=== PATIENT | male | born 1985 | race Hispanic/Latino ===

== ENCOUNTER 2018-08-07 14:58 | Observation (INO) | payer SELFPAY ==
[~2018-08-07] VITALS: Ht 170.2 cm; Wt 110.0 kg
[2018-08-07] VITALS (8 sets, daily range): BP systolic 106–138; BP diastolic 56–86
[~2018-08-07 14:58] MED LIST: EXCEDRI1 OR; FLEXERIL OR; FLEXERIL PO; FLONASE NASAL50 MCG; NAPROSYN500 MG PO; NO HOME MEDS; NORCO1 TA1 PO; ULTRAM50 M1 PO
[2018-08-07 15:41] LABS: HEMATOCRIT 47.4 % (39.0-50.0); HEMOGLOBIN 15.5 g/dl (14.0-18.0); MEAN CELL VOLUME 84.9 fL CALC (80.0-100.0); MEAN CORPUSCULAR HGB 27.8 pG CALC (26.0-32.0); MEAN CORPUSCULAR HGB CONC 32.7 g/L CALC (32.0-36.0); NEUT# 14.3 thou/uL (1.82-7.42); RED BLOOD COUNT 5.58 mill/uL (4.70-6.10); RED CELL DISTRI WIDTH 13.5 % (11.5-15.5)
[2018-08-07 15:53] LABS: ALBUMIN 4.7 g/dL (3.2-5.0); ALKALINE PHOSPHATASE 124 u/l (38-126); ANION GAP 16 (6-22 (CALC)); BILIRUBIN, TOTAL 0.7 mg/dL (0.0-1.4); BUN 14 mg/dL (9-20); BUN/CREATININE RATIO 11 (12-20 (CALC)); CARBON DIOXIDE 27 mmol/l (22-30); CHLORIDE 103 mmol/l (95-108); CREATININE 1.2 mg/dL (0.7-1.3); GFR > 60 ML/MIN (>=60 (CALC)); GFR FOR AFR.AMER. > 60 ML/MIN (>=60 (CALC)); LIPASE 138 u/l (23-300); POTASSIUM 4.3 mmol/l (3.5-5.1); SGOT/AST 35 u/l (17-59); SODIUM 143 mmol/l (137-146); TOTAL PROTEIN 8.3 g/dL (6.3-8.2)
[2018-08-07 16:45] LABS: URINE BILIRUBIN - DIPSTICK NEGATIVE (NEGATIVE); URINE BLOOD DIPSTICK NEGATIVE (NEGATIVE); URINE COLOR YELLOW; URINE GLUCOSE - DIPSTICK NEGATIVE (NEGATIVE); URINE KETONE NEGATIVE (NEGATIVE); URINE LEUK ESTERASE NEGATIVE (NEGATIVE); URINE NITRITE - DIPSTICK NEGATIVE (Negative); URINE PROTEIN - DIPSTICK NEGATIVE (NEG-TRACE); URINE SPECIFIC GRAVITY >=1.030
[2018-08-08 04:06] VITALS: BP 95/58
[2018-08-08 07:46] VITALS: BP 114/69
[2018-08-08] MEDS ORDERED: MOTRIN800 MG PO (10:09)
[2018-08-08] MEDS ORDERED: PERCOCET 5/325M1 TAB PO (10:10)
== END 2018-08-08 10:38 | disposition home or self-care (01) | DRG 343 ==
LOC: ED 14:58 → ED-I 15:44 → ED 15:44 → ED-I 17:13 → ED 18:18 → MS2 18:19
PROVIDERS: Emergency Medicine; ADMIT Internal Medicine; ATTEND Internal Medicine
PROC: 0DTJ4ZZ Resection of Appendix, Percutaneous Endoscopic Approach (ICD-10-PCS; principal; 2018-08-07)
DX: K35.30 Acute appendicitis with localized peritonitis, without perforation or gangrene (principal)
CPT/HCPCS: J1650; J2710; Q9967

== ENCOUNTER 2018-08-25 17:10 | Emergency (ER) | payer SELFPAY ==
[~2018-08-25] VITALS: Ht 170.2 cm; Wt 114.0 kg
[~2018-08-25 17:10] MED LIST changes: +MOTRIN800 MG PO; +PERCOCET 5/325M1 TAB PO
[2018-08-25] MEDS ORDERED: AMOXICILLIN500 MG PO (17:34)
[2018-08-25 17:35] VITALS: BP 126/78
== END 2018-08-25 17:35 | disposition home or self-care (01) | DRG 863 ==
LOC: ED 17:10
DX: T81.41XA Infection following a procedure, superficial incisional surgical site, initial encounter (principal); Y83.6 Removal of other organ (partial) (total) as the cause of abnormal reaction of the patient, or of later complication, without mention of misadventure at the time of the procedure

== ENCOUNTER 2019-12-08 05:13 | Inpatient (IN) | payer SELFPAY ==
[~2019-12-08] VITALS: Ht 172.7 cm; Wt 111.2 kg
[2019-12-08] VITALS (13 sets, daily range): BP systolic 108–137; BP diastolic 65–88
[~2019-12-08 05:13] MED LIST changes: +AMOXICILLIN500 MG PO
--- NOTE | 2019-12-08 05:15 | NUR ---
PATIENT TO TREATMENT ROOM 10 FOR BEDSIDE TRIAGE, PATIENT STATES THAT HE HAS HAD A SORE THROAT X 2 DAYS AND FEELS THAT HE IS EXCESSIVELY THIRSTY. AWAKE AND ALERT, NO S/S OF DISTRESS, FAMILY AT BEDSIDE.
--- NOTE | 2019-12-08 05:52 | NUR ---
PATIENT RESTING QUIETLY, NO C/O PAIN, NO S/S OF DISTRESS, RESPIRATIONS EVEN AND UNLABORED, AWAITING DIAGNOSTIC RESULTS.
[2019-12-08 05:59] LABS: HEMATOCRIT 46.9 % (39.0-50.0); HEMOGLOBIN 16.1 g/dl (14.0-18.0); IMMATURE GRANULOCYTES 0.4 % (0.0-5.0); MEAN CELL VOLUME 81.3 fL CALC (80.0-100.0); MEAN CORPUSCULAR HGB 27.9 pG CALC (26.0-32.0); MEAN CORPUSCULAR HGB CONC 34.3 g/dL CAL (32.0-36.0); NEUT# 7.16 thou/uL (1.82-7.42); RED BLOOD COUNT 5.77 mill/uL (4.70-6.10); RED CELL DISTRI WIDTH 12.4 % (11.5-15.5)
[2019-12-08 05:59] LABS: URINE BILIRUBIN - DIPSTICK NEGATIVE (NEGATIVE); URINE BLOOD DIPSTICK NEGATIVE (NEGATIVE); URINE COLOR YELLOW; URINE GLUCOSE - DIPSTICK >=1000 mg/dL (NEGATIVE); URINE KETONE NEGATIVE (NEGATIVE); URINE LEUK ESTERASE NEGATIVE (NEGATIVE); URINE NITRITE - DIPSTICK NEGATIVE (Negative); URINE PH 5.5 (4.5-8.0); URINE PROTEIN - DIPSTICK NEGATIVE (NEG-TRACE); URINE SPECIFIC GRAVITY <=1.005; URINE UROBILINOGEN - DIPSTICK 0.2 E.U./dL (0.2)
[2019-12-08 06:17] LABS: ALBUMIN 4.6 g/dL (3.2-5.0); BILIRUBIN, TOTAL 0.8 mg/dL (0.0-1.4); BUN 16 mg/dL (9-20); BUN/CREATININE RATIO 14 (12-20 (CALC)); CARBON DIOXIDE 26 mmol/l (22-30); CHLORIDE 96 mmol/l (95-108); CREATININE 1.2 mg/dL (0.7-1.3); GFR > 60 ML/MIN (>=60 (CALC)); GFR FOR AFR.AMER. > 60 ML/MIN (>=60 (CALC)); POTASSIUM 4.3 mmol/l (3.5-5.1); SGOT/AST 32 u/l (17-59); TOTAL PROTEIN 7.8 g/dL (6.3-8.2)
[2019-12-08 06:31] LABS: ALKALINE PHOSPHATASE 235 u/l (38-126); ANION GAP 16 (6-22 (CALC)); SODIUM 134 mmol/l (137-146)
--- NOTE | 2019-12-08 06:52 | NUR ---
HAND OFF REPORT GIVEN TO JOSÉ MIGUEL
--- NOTE | 2019-12-08 07:10 | NUR ---
PATIENT MEDICATED PER ORDERED. AND PATIENT AWARE OF PLAN OF CARE AND PLAN FOR ADMISSION. PATIENT DENIES ANY NEEDS. CALL CARMONA WITHIN REACH.
--- NOTE | 2019-12-08 07:20 | NUR ---
ATTEMPTED TO CALL REPORT, NO ANSWER WILL CALL BACK.
--- NOTE | 2019-12-08 07:40 | NUR ---
PATIENT REPORT TO EMILY DALAL.
--- NOTE | 2019-12-08 08:15 | NUR ---
UPDATED REPORT TO EMILY DALAL.
--- NOTE | 2019-12-08 08:20 | NUR ---
Admission Note Report Given to: EMILY DALAL Transported by: Wheelchair X Stretcher Transported with: X Nurse Transporter X Patent IV O2 X Urology Physician Location: X ICU MS2 PATIENT TO ICU BED 4 IN STABLE CONDITION BY EMILY ZAMORA
--- NOTE | 2019-12-08 08:25 | NUR ---
male pt received from ER to ICU bed 2 via stretcher accompanied by Leilani Randle RN in stable condition; pt ambulatory with steady gait; admission assessment completed at this time; pt with c/c of sore throat, frequent urination and excessive thirst x2 days; pt alert and oriented; denies pain; no n/v noted; resp even and unlabored; lungs clear; skin color wnl; ra; hr reg; strong pulses; no edema noted; sr on monitor; abd soft with bs present; no bm noted per writer producer; pt admits to voiding without complication; no urine to inspect at this time; urinal placed at bedside; #20 patent to rac with ivf infusing/ insulin gtt at 5 units/hr without complication; no redness or edema noted at site; plan of care/ meds/ new onset diabetes explained; call light within reach; will continue to monitor
--- NOTE | 2019-12-08 08:55 | NUR ---
acchcueck critical high; insulin gtt at 5 units/hr; result reading 461; stat glucose held per MD verbal order; will continue to monitor
--- NOTE | 2019-12-08 09:06 | NUR ---
Dr Tomas present at bedside to assess pt and discuss plan of care
--- NOTE | 2019-12-08 10:00 | NUR ---
pt awake in bed; denies needs; iv intact and patent; accucheck k392; insulin gtt titrated per protocol; sr on monitor; call light within reach
--- NOTE | 2019-12-08 11:10 | NUR ---
floating labor gang supervisor present at bedside
[2019-12-08 11:39] LABS: ANION GAP 15 (6-22 (CALC)); BUN 14 mg/dL (9-20); BUN/CREATININE RATIO 16 (12-20 (CALC)); CARBON DIOXIDE 25 mmol/l (22-30); CHLORIDE 102 mmol/l (95-108); CREATININE 0.9 mg/dL (0.7-1.3); GFR > 60 ML/MIN (>=60 (CALC)); GFR FOR AFR.AMER. > 60 ML/MIN (>=60 (CALC)); MAGNESIUM 2.3 mg/dL (1.6-2.3); POTASSIUM 4.1 mmol/l (3.5-5.1); SODIUM 137 mmol/l (137-146)
--- NOTE | 2019-12-08 12:05 | NUR ---
pt awake in bed; no apparent distress noted; pt offers no complaints; iv intact and patent; no redness or edema noted at site; accucheck 283; insulin gtt titrated per protocol; sr on monitor; call light within reach; will continue to monitor
--- NOTE | 2019-12-08 13:32 | NUR ---
ACCUCHECK 296; INSULIN INFUSING PER PROTOCOL; DIABETIC EDUCATION PROVIDED; WILL CONTINUE TO MONITOR
--- NOTE | 2019-12-08 13:44 | NUR ---
Dr Tomas called per this time; updated provided; labs reviewed; current accucheck reviewed; orders received and on chart
--- NOTE | 2019-12-08 14:10 | NUR ---
awake in bed; no apparent distress noted; plan of care explained; sr on monitor; iv intact and patent; insulin gtt per protocol; will continue to monitor
--- NOTE | 2019-12-08 14:28 | NUR ---
ACCUCHECK OBTAINED AT 261, INSULIN DRIP INFUSING PER PROTOCOL. PT RESTING QUIETLY ON STRETCHER, NO COMPLAINT AT THIS TIME. VITAL SIGNS REMAIN STABLE, CALL LIGHT WITHIN REACH.
--- NOTE | 2019-12-08 16:10 | NUR ---
awake in bed; no apparent distress noted; pt offers no complaints; iv intact and patent; sr on monitor; accucheck 250; call light within reach; will continue to monitor
--- NOTE | 2019-12-08 18:03 | NUR ---
awake in bed; no apparent distress noted; pt offers no complaints; iv intact and patent; no redness or edema noted at site; sr on monitor; pt tolerated dinner well; call light within reach
--- NOTE | 2019-12-08 19:55 | NUR ---
AWAKE, RESTING IN BED. NO COMPLAINTS VOICED. APTIENT STATES FEELING MUCH BETTER TONIGHT. VSS. RESP NON-LABORED. RA O2 SAT 98% BREATH SOUNDS CLEAR THROUGHOUT. IV IN RAC WITH NS INFUSIGN AT 200 ML/HR, IV SITE BEIGN. CARDIAC MOITOR SHOWS SR. DISCUSSED PLAN OF CARE. DENIES NEEDS AT THIS TIMES. SHIFT ASSESSMENT COMPLETED. CALL CARMONA IN REACH.
--- NOTE | 2019-12-08 21:00 | NUR ---
ACCU CHECK 260, COVERED PER MEDIUM DOSE SS PROTOCOL ORDERED. MEDICATED WITH SCHEDULED DOSE OF NOVOLIN N. DISCUSSED WITH PATIENT LONG AND SHORT ACTING INSULINS. ENCOURAGED TO READ PRINTED EDUCATION MATERIAL PROVIDED [place] AND TO ASK QUESTIONS AND VOICE CONCERNS.
--- NOTE | 2019-12-08 22:00 | NUR ---
VSS. IVF'S COMPLETED, SITE SALINE LOCKED, FLUSHED AND PATENT.
[2019-12-09] VITALS: BP 130/77
--- NOTE | 2019-12-09 | NUR ---
VSS. SR ON MONITOR. PATIENT RESTING WITH EYES CLOSED. RESP NON-LABORED.
[2019-12-09 02:00] VITALS: BP 140/97
[2019-12-09 04:00] VITALS: BP 138/79
--- NOTE | 2019-12-09 04:00 | NUR ---
SLEEPING SOUNDLY. RESP NON-LABORED. VSS.
[2019-12-09 06:16] VITALS: BP 129/81
--- NOTE | 2019-12-09 06:35 | NUR ---
NO CHANGES TO REPORT. VSS. RESP NON-LABORED. SR ON MONITOR. SLEPT WELL DURING THE NIGHT.
--- NOTE | 2019-12-09 06:45 | NUR ---
REPORT RECEIVED FROM RADAMES DIAZ. CARE ASSUMED
--- NOTE | 2019-12-09 07:00 | NUR ---
PT RESTING IN BED AWAKE. PT IS ALERT AND ORIENTED X3. SHIFT ASSESSMENT COMPLETED AT THIS TIME. IV PATENT X1. CALL LIGHT IN REACH. WILL CONTINUE TO MONITOR
--- NOTE | 2019-12-09 07:24 | NUR ---
LAB AT BEDSIDE AT THIS TIME.
[2019-12-09 07:46] LABS: HEMATOCRIT 45.9 % (39.0-50.0); HEMOGLOBIN 15.5 g/dl (14.0-18.0); IMMATURE GRANULOCYTES 0.6 % (0.0-5.0); MEAN CELL VOLUME 82.9 fL CALC (80.0-100.0); MEAN CORPUSCULAR HGB CONC 33.8 g/dL CAL (32.0-36.0); NEUT# 7.47 thou/uL (1.82-7.42); RED BLOOD COUNT 5.54 mill/uL (4.70-6.10); RED CELL DISTRI WIDTH 12.6 % (11.5-15.5)
[2019-12-09 08:03] LABS: ALKALINE PHOSPHATASE 142 u/l (38-126); ANION GAP 14 (6-22 (CALC)); BILIRUBIN, TOTAL 0.7 mg/dL (0.0-1.4); BUN 13 mg/dL (9-20); BUN/CREATININE RATIO 15 (12-20 (CALC)); CARBON DIOXIDE 24 mmol/l (22-30); CHLORIDE 104 mmol/l (95-108); CREATININE 0.9 mg/dL (0.7-1.3); GFR > 60 ML/MIN (>=60 (CALC)); GFR FOR AFR.AMER. > 60 ML/MIN (>=60 (CALC)); POTASSIUM 4.6 mmol/l (3.5-5.1); SGOT/AST 39 u/l (17-59); SODIUM 137 mmol/l (137-146); TOTAL PROTEIN 7.1 g/dL (6.3-8.2)
--- NOTE | 2019-12-09 08:10 | NUR ---
DR CRUZ AT BEDSIDE AT THIS TIME.
[2019-12-09] MEDS ORDERED: METFORMIN500 M2 PO (08:24)
[2019-12-09] MEDS ORDERED: AMOXICILLIN500 MG PO (08:24)
[2019-12-09] MEDS ORDERED: JARDIANCE25 MG PO (08:25)
[2019-12-09 08:50] VITALS: BP 153/96
--- NOTE | 2019-12-09 08:55 | NUR ---
Discharge instructions given. Patient verbalizes understanding of same. Discharged in stable condition via Ambulatory to Home with family. All belongings sent with pt.
--- NOTE | 2019-12-09 09:00 | NUR ---
PT DECIDED THAT HE WOULD LIKE NOVOLIN PRIOR TO DC AND WILL FILL MEDICATIONS LATER TODAY. PT THEN AMBULATORY FROM ICU.
== END 2019-12-09 09:00 | disposition home or self-care (01) | DRG 639 ==
LOC: ED 05:13 → ED-I 06:32 → ED 06:47 → ICU 06:48
PROVIDERS: Family Medicine; ADMIT Internal Medicine; ATTEND Internal Medicine
DX: E11.00 Type 2 diabetes mellitus with hyperosmolarity without nonketotic hyperglycemic-hyperosmolar coma (NKHHC) (principal); E11.65 Type 2 diabetes mellitus with hyperglycemia; J02.0 Streptococcal pharyngitis; Z20.828 Contact with and (suspected) exposure to other viral communicable diseases
CPT/HCPCS: J1650

== ENCOUNTER 2020-04-05 21:40 | Emergency (ER) | payer SELFPAY ==
[~2020-04-05] VITALS: Ht 175.3 cm; Wt 108.0 kg
[~2020-04-05 21:40] MED LIST changes: +JARDIANCE25 MG PO; +METFORMIN500 M2 PO
[2020-04-05 22:46] LABS: HEMATOCRIT 45.4 % (39.0-50.0); HEMOGLOBIN 14.7 g/dl (14.0-18.0); IMMATURE GRANULOCYTES 0.4 % (0.0-5.0); MEAN CELL VOLUME 84.2 fL CALC (80.0-100.0); MEAN CORPUSCULAR HGB 27.3 pG CALC (26.0-32.0); MEAN CORPUSCULAR HGB CONC 32.4 g/dL CAL (32.0-36.0); NEUT# 6.66 thou/uL (1.82-7.42); RED BLOOD COUNT 5.39 mill/uL (4.70-6.10); RED CELL DISTRI WIDTH 13.2 % (11.5-15.5)
[2020-04-05 22:57] LABS: URINE BILIRUBIN - DIPSTICK NEGATIVE (NEGATIVE); URINE BLOOD DIPSTICK NEGATIVE (NEGATIVE); URINE COLOR YELLOW; URINE GLUCOSE - DIPSTICK NEGATIVE (NEGATIVE); URINE KETONE TRACE mg/dL (NEGATIVE); URINE LEUK ESTERASE NEGATIVE (NEGATIVE); URINE NITRITE - DIPSTICK NEGATIVE (Negative); URINE PH 5.5 (4.5-8.0); URINE PROTEIN - DIPSTICK NEGATIVE (NEG-TRACE); URINE SPECIFIC GRAVITY >=1.030; URINE UROBILINOGEN - DIPSTICK 0.2 E.U./dL (0.2)
[2020-04-05 23:05] LABS: ALKALINE PHOSPHATASE 113 u/l (38-126); AMYLASE 54 u/l (30-110); ANION GAP 15 (6-22 (CALC)); BILIRUBIN, TOTAL 0.5 mg/dL (0.0-1.4); BUN 13 mg/dL (9-20); BUN/CREATININE RATIO 13 (12-20 (CALC)); CARBON DIOXIDE 21 mmol/l (22-30); CHLORIDE 105 mmol/l (95-108); GFR > 60 ML/MIN (>=60 (CALC)); GFR FOR AFR.AMER. > 60 ML/MIN (>=60 (CALC)); LIPASE 243 u/l (23-300); POTASSIUM 4.2 mmol/l (3.5-5.1); SGOT/AST 44 u/l (17-59); SODIUM 138 mmol/l (137-146); TOTAL PROTEIN 7.2 g/dL (6.3-8.2)
[2020-04-06] MEDS ORDERED: ZOFRAN4 MG/TAB PO (01:31)
[2020-04-06 01:37] VITALS: BP 118/70
== END 2020-04-06 01:45 | disposition home or self-care (01) | DRG 392 ==
LOC: ED 21:40
PROVIDERS: Emergency Medicine
DX: R11.10 Vomiting, unspecified (principal); R19.7 Diarrhea, unspecified; R10.84 Generalized abdominal pain; Z20.822 Contact with and (suspected) exposure to COVID-19
CPT/HCPCS: Q9967; S0164

== ENCOUNTER 2020-05-27 04:13 | Observation (INO) | payer SELFPAY ==
[~2020-05-27] VITALS: Ht 170.2 cm; Wt 109.8 kg
[~2020-05-27 04:13] MED LIST changes: +ZOFRAN4 MG/TAB PO
--- NOTE | 2020-05-27 04:15 | NUR ---
PT AMBULATORY TO ROOM FOR TRIAGE.
[2020-05-27] MEDS ORDERED: METFORMIN HCL500 M2 PO (04:39)
[2020-05-27 04:46] LABS: HEMATOCRIT 44.8 % (39.0-50.0); IMMATURE GRANULOCYTES 0.3 % (0.0-5.0); MEAN CELL VOLUME 81.9 fL CALC (80.0-100.0); MEAN CORPUSCULAR HGB 27.4 pG CALC (26.0-32.0); MEAN CORPUSCULAR HGB CONC 33.5 g/dL CAL (32.0-36.0); NEUT# 4.66 thou/uL (1.82-7.42); RED BLOOD COUNT 5.47 mill/uL (4.70-6.10); RED CELL DISTRI WIDTH 12.6 % (11.5-15.5)
[2020-05-27 04:53] LABS: ALBUMIN 4.4 g/dL (3.2-5.0); BILIRUBIN, TOTAL 0.7 mg/dL (0.0-1.4); BUN 17 mg/dL (9-20); BUN/CREATININE RATIO 16 (12-20 (CALC)); CHLORIDE 97 mmol/l (95-108); GFR > 60 ML/MIN (>=60 (CALC)); GFR FOR AFR.AMER. > 60 ML/MIN (>=60 (CALC)); POTASSIUM 4.3 mmol/l (3.5-5.1); SGOT/AST 30 u/l (17-59); SODIUM 134 mmol/l (137-146); TOTAL PROTEIN 7.8 g/dL (6.3-8.2)
[2020-05-27 05:01] LABS: ALKALINE PHOSPHATASE 183 u/l (38-126); ANION GAP 15 (6-22 (CALC)); CARBON DIOXIDE 26 mmol/l (22-30)
[2020-05-27 05:04] LABS: MYOGLOBIN 31 ng/mL (0 - 121)
--- NOTE | 2020-05-27 05:05 | NUR ---
RESTING COMFORTABLY. IV INFUSING WELL.
[2020-05-27 05:32] LABS: URINE BILIRUBIN - DIPSTICK NEGATIVE (NEGATIVE); URINE BLOOD DIPSTICK NEGATIVE (NEGATIVE); URINE COLOR YELLOW; URINE GLUCOSE - DIPSTICK >=1000 mg/dL (NEGATIVE); URINE KETONE NEGATIVE (NEGATIVE); URINE LEUK ESTERASE NEGATIVE (NEGATIVE); URINE PROTEIN - DIPSTICK NEGATIVE (NEG-TRACE); URINE UROBILINOGEN - DIPSTICK 0.2 E.U./dL (0.2)
[2020-05-27 05:35] LABS: URINE NITRITE - DIPSTICK NEGATIVE (Negative)
--- NOTE | 2020-05-27 06:05 | NUR ---
DISCUSSED ADMISSION. ADDITIONAL INSULIN GIVEN.
--- NOTE | 2020-05-27 07:00 | NUR ---
PT RESTING COMFORTABLY ON STRETCHER
--- NOTE | 2020-05-27 07:45 | NUR ---
AM FOOD TRAY SERVED
[2020-05-27 08:00] VITALS: BP 121/78
--- NOTE | 2020-05-27 08:00 | NUR ---
PT TO MEDSURG VIA WHEELCHAIR.
--- NOTE | 2020-05-27 08:00 | NUR ---
PATIENT RECEIVED FROM ED AT THIS TIME. PATIENT ALERT AND ORIENTED TO ROOM AND SURROUNDING AND ALERT AND ORIENTED X 3. PATIENT DENEIS ANY PAIN AT THIS TIME. DIRECTOR OF TRANSPORTATION DONE. PATIENT SKIN CLEAR AND NO OPEN WOUNDS NOTED TO INCULE FEET AND HEALS AT THIS TIME. PATIENT LUNG SOUNDS ARE CLEAR IN ALL LUNG BARBA AND BOWEL SOUNDS PRESENT IN ALL FOUR QUADRANTS AND PATIENT STATES HIS LAST BOWEL MOVEMENT WAS ON 05/26/20 AND WAS "NORMAL". PATIENT SIDERAILS ARE UP X 2 AND PERSONAL ITEMS ARE WITH PATIENT. PATIENT DOES HAVE A LARGE SUM OF FUNEZ IN [place] WHICH WAS COUNTED AND WITTNESSED BY THIS LANIE AND JOSE CARLOS ALARCON RN AND TAVIA SERRANO CNA AND PATIENT TOTAL AMOUNT IN [place] IS $4,076.[address] DO[address]ARS[address] OFFER MADE TO PLACE [facility]ONE[facility] IN HOSPITAL [facility] AT THIS TIME AND PATIENT REFUSED AND STATED HE WILL CALL TO PICK IT UP. PATIENT ADVISED THAT CAN COME TO HOSPITAL FOR ONE HOUR VISIT BETWEEN THE HOURS OF [phone] FOR ONE HOUR VISIT. PATIENT STATES THAT HE WILL HAVE HER TAKE THE MONEY HOME I ADVISED PATINT TO LET THIS NURSE KNOW WHEN DOES THAT. PATIENT DENIES ANY OTHER NEEDS AT THIS TIME.
[2020-05-27 08:20] LABS: CHOLESTEROL HDL RATIO 4.9 (<4.4 (CALC))
--- NOTE | 2020-05-27 11:00 | NUR ---
PATIENT ACCU-CHECK WAS TAKEN BY FACILITY ACCU-CHECK MACHINE AND RESULTS WERE 234. THEN WE TOOK PATIENTS ACCU-CHECK USING HIS GLUCOMETER THAT HE PURCHASED FROM [employer] AND THE READING WAS 298. PATIENT WAS GIVEN HUMALOG SLIDING SCALE COVERAGE OF 4 UNITS BASED OFF OF THE 234 READING THAT WAS DONE BY FACILITY GLUCOMETER AT THIS TIME. ALEX GIBSON ARPN IN TO SEE PATIENT AT THIS TIME AND WAS GIVING EDUCATION ON ACCU CHECK RESULTS AND TO ADVISE TO REPLACE CURRENT ACCU CHECK GLUCOMETER WHEN HE RETURNS HOME. PATIENT DOES VERBALIZE UNDERSTANDING.
[2020-05-27] MEDS ORDERED: METFORMIN HYD1000 MG PO (11:31)
[2020-05-27] MEDS ORDERED: GLIPIZIDE5 M2 PO (11:31)
--- NOTE | 2020-05-27 11:44 | NUR ---
PATIENT SITTING AT BEDSIDE EATING LUNCH. MOLDER WAX BALL IN TO SEE PATIENT AND TO GO OVER SOME EDUCATION ON DIABETIES AT THIS TIME. PATIENT DENIES ANY PAIN AT THIS TIME. SIDERAILS ARE UP CALL LIGHT IS WITHIN REACH.
[2020-05-27] MEDS ORDERED: JARDIANCE25 MG PO (11:58)
--- NOTE | 2020-05-27 13:36 | NUR ---
Discharge instructions given. Patient verbalizes understanding of same. Discharged in stable condition via Ambulatory to with spouse. All belongings sent with pt.
== END 2020-05-27 13:36 | disposition home or self-care (01) | DRG 639 ==
LOC: ED 04:13 → ED-I 05:44 → ED 06:00 → MS2 06:01
PROVIDERS: Family Medicine; ADMIT Internal Medicine; ATTEND Internal Medicine
DX: E11.00 Type 2 diabetes mellitus with hyperosmolarity without nonketotic hyperglycemic-hyperosmolar coma (NKHHC) (principal); E11.65 Type 2 diabetes mellitus with hyperglycemia; Z79.84 Long term (current) use of oral hypoglycemic drugs; Z20.822 Contact with and (suspected) exposure to COVID-19
CPT/HCPCS: G0378; J1650

== ENCOUNTER 2020-06-01 12:41 | Emergency (ER) | payer SELFPAY ==
[~2020-06-01] VITALS: Ht 170.2 cm; Wt 104.0 kg
[~2020-06-01 12:41] MED LIST changes: +GLIPIZIDE5 M2 PO; +METFORMIN HCL500 M2 PO; +METFORMIN HYD1000 MG PO
[2020-06-01 13:49] LABS: URINE BILIRUBIN - DIPSTICK NEGATIVE (NEGATIVE); URINE BLOOD DIPSTICK NEGATIVE (NEGATIVE); URINE COLOR YELLOW; URINE GLUCOSE - DIPSTICK >=1000 mg/dL (NEGATIVE); URINE KETONE NEGATIVE (NEGATIVE); URINE LEUK ESTERASE NEGATIVE (NEGATIVE); URINE PROTEIN - DIPSTICK NEGATIVE (NEG-TRACE); URINE UROBILINOGEN - DIPSTICK 0.2 E.U./dL (0.2)
[2020-06-01 13:50] LABS: URINE NITRITE - DIPSTICK NEGATIVE (Negative)
[2020-06-01] MEDS ORDERED: FLEXERIL5 MG PO (14:57)
[2020-06-01] MEDS ORDERED: MOTRIN800 MG PO (14:57)
[2020-06-01 14:58] VITALS: BP 102/55
== END 2020-06-01 15:10 | disposition home or self-care (01) | DRG 563 ==
LOC: ED 12:41
DX: S39.012A Strain of muscle, fascia and tendon of lower back, initial encounter (principal); E11.9 Type 2 diabetes mellitus without complications; X58.XXXA Exposure to other specified factors, initial encounter; Z79.84 Long term (current) use of oral hypoglycemic drugs

== ENCOUNTER 2020-06-17 | Emergency (ER) | payer SELFPAY ==
[~2020-06-17] MED LIST changes: +FLEXERIL5 MG PO
[2020-06-17 09:03] LABS: HEMATOCRIT 45.6 % (39.0-50.0); HEMOGLOBIN 15.1 g/dl (14.0-18.0); IMMATURE GRANULOCYTES 1.1 % (0.0-5.0); MEAN CELL VOLUME 84.1 fL CALC (80.0-100.0); MEAN CORPUSCULAR HGB 27.9 pG CALC (26.0-32.0); MEAN CORPUSCULAR HGB CONC 33.1 g/dL CAL (32.0-36.0); NEUT# 10.65 thou/uL (1.82-7.42); RED BLOOD COUNT 5.42 mill/uL (4.70-6.10); RED CELL DISTRI WIDTH 13.4 % (11.5-15.5)
[2020-06-17 09:14] LABS: ALBUMIN 4.5 g/dL (3.2-5.0); ALKALINE PHOSPHATASE 149 u/l (38-126); ANION GAP 16 (6-22 (CALC)); BUN 13 mg/dL (9-20); BUN/CREATININE RATIO 14 (12-20 (CALC)); CARBON DIOXIDE 28 mmol/l (22-30); CHLORIDE 99 mmol/l (95-108); CREATININE 0.9 mg/dL (0.7-1.3); GFR > 60 ML/MIN (>=60 (CALC)); GFR FOR AFR.AMER. > 60 ML/MIN (>=60 (CALC)); POTASSIUM 4.6 mmol/l (3.5-5.1); SGOT/AST 42 u/l (17-59); SODIUM 138 mmol/l (137-146); TOTAL PROTEIN 7.9 g/dL (6.3-8.2)
[2020-06-17] MEDS ORDERED: AMOXICILLIN500 MG PO (09:27)
== END 2020-06-17 09:35 | disposition home or self-care (01) | DRG 159 ==
PROVIDERS: Emergency Medicine
DX: K04.7 Periapical abscess without sinus (principal); K02.9 Dental caries, unspecified; E11.9 Type 2 diabetes mellitus without complications; Z79.84 Long term (current) use of oral hypoglycemic drugs

== ENCOUNTER 2021-04-18 21:20 | Emergency (ER) | payer SELFPAY | END 2021-04-18 23:10 | disposition left against medical advice (07) | DRG 951 | LOC: ED 21:20 → LWOBS 23:10 → ED 23:23 | DX: Z53.21 Procedure and treatment not carried out due to patient leaving prior to being seen by health care provider (principal) ==

== ENCOUNTER 2021-04-19 13:25 | Emergency (ER) | payer SELFPAY ==
[~2021-04-19] VITALS: Ht 170.2 cm; Wt 90.0 kg
[2021-04-19 14:41] LABS: HEMOGLOBIN 15.7 g/dl (14.0-18.0); IMMATURE GRANULOCYTES 0.8 % (0.0-5.0); MEAN CELL VOLUME 81.6 fL CALC (80.0-100.0); MEAN CORPUSCULAR HGB 27.8 pG CALC (26.0-32.0); MEAN CORPUSCULAR HGB CONC 34.1 g/dL CAL (32.0-36.0); NEUT# 7.34 thou/uL (1.82-7.42); RED BLOOD COUNT 5.64 mill/uL (4.70-6.10); RED CELL DISTRI WIDTH 12.8 % (11.5-15.5)
[2021-04-19 15:12] LABS: ALBUMIN 4.3 g/dL (3.2-5.0); ALKALINE PHOSPHATASE 146 u/l (38-126); BILIRUBIN, TOTAL 0.6 mg/dL (0.0-1.4); BUN 18 mg/dL (9-20); BUN/CREATININE RATIO 25 (12-20 (CALC)); CARBON DIOXIDE 24 mmol/l (22-30); CREATININE 0.7 mg/dL (0.7-1.3); GFR > 60 ML/MIN (>=60 (CALC)); GFR FOR AFR.AMER. > 60 ML/MIN (>=60 (CALC)); POTASSIUM 4.4 mmol/l (3.5-5.1); SGOT/AST 39 u/l (17-59); SODIUM 135 mmol/l (137-146); TOTAL PROTEIN 7.9 g/dL (6.3-8.2)
[2021-04-19 15:14] LABS: ANION GAP 16 (6-22 (CALC)); CHLORIDE 99 mmol/l (95-108)
[2021-04-19 17:12] LABS: URINE BILIRUBIN - DIPSTICK NEGATIVE (NEGATIVE); URINE BLOOD DIPSTICK NEGATIVE (NEGATIVE); URINE COLOR YELLOW; URINE GLUCOSE - DIPSTICK >=1000 mg/dL (NEGATIVE); URINE KETONE 15 mg/dL (NEGATIVE); URINE LEUK ESTERASE NEGATIVE (NEGATIVE); URINE PH 5.5 (4.5-8.0); URINE PROTEIN - DIPSTICK NEGATIVE (NEG-TRACE); URINE SPECIFIC GRAVITY >=1.030; URINE UROBILINOGEN - DIPSTICK 0.2 E.U./dL (0.2)
[2021-04-19 17:18] LABS: URINE NITRITE - DIPSTICK NEGATIVE (Negative)
[2021-04-19 18:00] VITALS: BP 110/73
== END 2021-04-19 17:59 | disposition home or self-care (01) | DRG 639 ==
LOC: ED 13:25
PROVIDERS: Family Medicine
DX: E11.65 Type 2 diabetes mellitus with hyperglycemia (principal); Z79.84 Long term (current) use of oral hypoglycemic drugs

== ENCOUNTER 2022-01-11 05:37 | Emergency (ER) | payer SELFPAY ==
[2022-01-11] VITALS (13 sets, daily range): BP systolic 108–128; BP diastolic 69–92
[~2022-01-11] VITALS: Ht 175.3 cm; Wt 90.0 kg
[2022-01-11 06:44] LABS: HEMATOCRIT 46.9 % (39.0-50.0); HEMOGLOBIN 16.3 g/dl (14.0-18.0); IMMATURE GRANULOCYTES 0.9 % (0.0-5.0); MEAN CELL VOLUME 81.4 fL CALC (80.0-100.0); MEAN CORPUSCULAR HGB 28.3 pG CALC (26.0-32.0); MEAN CORPUSCULAR HGB CONC 34.8 g/dL CAL (32.0-36.0); NEUT# 6.55 thou/uL (1.82-7.42); RED BLOOD COUNT 5.76 mill/uL (4.70-6.10); RED CELL DISTRI WIDTH 12.6 % (11.5-15.5)
[2022-01-11 07:18] LABS: ALBUMIN 4.5 g/dL (3.2-5.0); ALKALINE PHOSPHATASE 155 u/l (38-126); AMYLASE 69 u/l (30-110); ANION GAP 15 (6-22 (CALC)); BILIRUBIN, TOTAL 0.4 mg/dL (0.0-1.4); BUN 17 mg/dL (9-20); BUN/CREATININE RATIO 22 (12-20 (CALC)); CARBON DIOXIDE 23 mmol/l (22-30); CHLORIDE 104 mmol/l (95-108); CREATININE 0.8 mg/dL (0.7-1.3); GFR FOR AFR.AMER. > 60 ML/MIN (>=60 (CALC)); GFR OTHER RACES > 60 ML/MIN (>=60 (CALC)); LIPASE 235 u/l (23-300); SGOT/AST 34 u/l (17-59); SODIUM 136 mmol/l (137-146); TOTAL PROTEIN 7.9 g/dL (6.3-8.2)
[2022-01-11 07:27] LABS: MYOGLOBIN 15 ng/mL (0 - 121)
[2022-01-11] MEDS ORDERED: ONDANSETRON4 MG PO (13:03)
[2022-01-11 13:47] LABS: URINE BILIRUBIN - DIPSTICK NEGATIVE (NEGATIVE); URINE BLOOD DIPSTICK NEGATIVE (NEGATIVE); URINE COLOR YELLOW; URINE GLUCOSE - DIPSTICK >=1000 mg/dL (NEGATIVE); URINE KETONE TRACE mg/dL (NEGATIVE); URINE LEUK ESTERASE NEGATIVE (NEGATIVE); URINE PH 5.5 (4.5-8.0); URINE PROTEIN - DIPSTICK NEGATIVE (NEG-TRACE); URINE UROBILINOGEN - DIPSTICK 0.2 E.U./dL (0.2)
[2022-01-11 13:54] LABS: URINE NITRITE - DIPSTICK NEGATIVE (Negative)
== END 2022-01-11 13:26 | disposition home or self-care (01) | DRG 313 ==
LOC: ED 05:37
PROVIDERS: Emergency Medicine
DX: R07.9 Chest pain, unspecified (principal); R11.2 Nausea with vomiting, unspecified; I10 Essential (primary) hypertension; E11.9 Type 2 diabetes mellitus without complications; Z79.84 Long term (current) use of oral hypoglycemic drugs

== ENCOUNTER 2023-04-30 17:15 | Emergency (ER) | payer SELFPAY ==
[~2023-04-30] VITALS: Ht 175.3 cm; Wt 86.1 kg
[~2023-04-30 17:15] MED LIST changes: +ONDANSETRON4 MG PO
[2023-04-30 17:32] VITALS: BP 123/86
[2023-04-30] MEDS ORDERED: SODIUM CHLORIDE 0.9% 1,000 ML IV ONE ×2 (17:35)
[2023-04-30] MEDS ORDERED: ONDANSETRON HCl 4 MG/2 ML SDV IV ONE (17:35)
[2023-04-30 18:08] LABS: BASO% 0.4 % (0-3); EOS% 1.9 % (0-8); HEMOGLOBIN 16.5 g/dl (14.0-18.0); MEAN CORPUSCULAR HGB 27.5 pG CALC (26.0-32.0); MEAN CORPUSCULAR HGB CONC 34.4 g/dL CAL (32.0-36.0); MONO% 8.9 % (2-13); NEUT# 6.73 thou/uL (1.82-7.42); NEUT% 71.8 % (42-76); RED CELL DISTRI WIDTH 12.6 % (11.5-15.5)
[2023-04-30 18:31] LABS: ALBUMIN 4.5 g/dL (3.2-5.0); ALKALINE PHOSPHATASE 153 u/l (38-126); ANION GAP 14 (6-22 (CALC)); BUN 14 mg/dL (9-20); BUN/CREATININE RATIO 18 (12-20 (CALC)); CARBON DIOXIDE 26 mmol/l (22-30); CHLORIDE 102 mmol/l (95-108); CREATININE 0.8 mg/dL (0.7-1.3); GFR FOR AFR.AMER. > 60 ML/MIN (>=60 (CALC)); GFR OTHER RACES > 60 ML/MIN (>=60 (CALC)); LIPASE 141 u/l (23-300); POTASSIUM 4.3 mmol/l (3.5-5.1); SGOT/AST 44 u/l (17-59); SODIUM 137 mmol/l (137-146); TOTAL PROTEIN 7.8 g/dL (6.3-8.2)
[2023-04-30 18:32] LABS: BILIRUBIN, TOTAL 0.7 mg/dL (0.2-1.3)
[2023-04-30] MEDS ORDERED: INSULIN REGULAR (HUMAN) 100 UNIT/ML INJ SC ONE (19:05)
[2023-04-30 20:00] LABS: URINE BILIRUBIN - DIPSTICK Negative (NEGATIVE); URINE BLOOD DIPSTICK Negative (NEGATIVE); URINE COLOR Yellow; URINE GLUCOSE - DIPSTICK >=1000 mg/dL (NEGATIVE); URINE KETONE 15 mg/dL (NEGATIVE); URINE LEUK ESTERASE Negative (NEGATIVE); URINE NITRITE - DIPSTICK Negative (Negative); URINE PROTEIN - DIPSTICK Negative (NEG-TRACE); URINE SPECIFIC GRAVITY 1.015
[2023-04-30] MEDS ORDERED: PROMETHAZINE HY25 M1 PO (20:32)
[2023-04-30] MEDS ORDERED: TAM75CAP PO (20:32)
[2023-04-30] MEDS ORDERED: OSELTAMIVIR PHOSPHATE 75 MG/TAB CAP PO ONE (20:35)
[2023-04-30 20:43] VITALS: BP 123/86
== END 2023-04-30 20:56 | disposition home or self-care (01) | DRG 195 ==
LOC: ED 17:15
PROVIDERS: Family Medicine
DX: J10.1 Influenza due to other identified influenza virus with other respiratory manifestations (principal); E11.65 Type 2 diabetes mellitus with hyperglycemia; I10 Essential (primary) hypertension; Z79.84 Long term (current) use of oral hypoglycemic drugs; Z20.822 Contact with and (suspected) exposure to COVID-19